=== PATIENT | male | born 1950 | race Caucasian/White ===

== ENCOUNTER 2017-04-29 09:22 | Emergency (ER) | payer MEDICARE, OTHER ==
[2017-04-29] MEDS ORDERED: ASPIRIN 81 MG TAB.CHEW PO ONE (09:38)
[2017-04-29] MEDS: NITROGLYCERIN 0.4 MG/TAB BTL SL PRN ×2 (09:45→09:50)
[2017-04-29 09:53] LABS: Hematocrit 42.2 % (42.0-52.0); Hemoglobin 13.6 gm/dL (13.5-18.0); Mean Corpuscular Hgb Conc 32.2 g/dl (32-36); Mean Platelet Volume 11.8 fl (6.0-9.5); Neutrophil # 7.1 K/mm3 (1.3-6.0); Neutrophil % 69.3 % (42-75.0); Platelet Count 256 K/mm3 (150-450); Red Blood Count 4.85 M/mm3 (4.7-6.0); White Blood Count 10.3 K/mm3 (4.0-10.5)
[2017-04-29] MEDS ORDERED: ASPIRIN 81 MG TAB.CHEW ONE (09:53)
[2017-04-29 10:03] LABS: Prothrombin Time (Patient) 11.3 Seconds (9.4-11.4)
[2017-04-29 10:06] LABS: INR 1.09 INR (0.90-1.10)
--- OUTSIDE RECORDS SUMMARY | 2017-04-29 10:32 | XMS REPORT | Continuity of Care Document ---
:1950 Author Organization [facility] ([facility]) Address [address] [place] [address] Phone [phone] Care Team Providers Name Role Phone Provider, No-Primary Care Primary Care Provider Unavailable Source Comments This disclosure is being made pursuant to the Care Everywhere program, applicable federal and state laws, and may not contain all informaitonavailable regarding this patient.[facility] ([facility]) Active Allergies and Adverse Reactions Allergen Noted Date Severity Reactions Comments Benzalkonium Chloride 11/22/2016 Blisters Current Medications Prescription Sig. Disp. Refills Start Date End Date Status STOOL SOFTENER 100 mg 11/05/2016 Active cap capsule VACUANT 283 mg enema 10/30/2016 Active acetylcysteine 10 % 10/30/2016 Active nebulizer solution albuterol-ipratropium 10/30/2016 Active 2.5-0.5 mg/3 mL inhalation solution aspirin 81 mg 10/30/2016 Active chewable tablet baclofen 20 mg tablet 10/30/2016 Active ULTRA FRESH 0.5 % 10/30/2016 Active drop ophthalmic drops chlorhexidine 0.12 % 10/30/2016 Active oral rinse diltiaZEM 120 mg ER 10/30/2016 Active capsule erythromycin 2 % 10/30/2016 Active topical solution LASIX 40 mg tablet 10/30/2016 Active ALLERGY RELIEF 10/30/2016 Active (FEXOFENADINE) 180 mg tablet losartan 50 mg tablet 10/30/2016 Active lidocaine 2 % jelly 10/30/2016 Active metoPROLol tartrate 10/30/2016 Active 50 mg tablet naproxen sodium 550 10/30/2016 Active mg tablet nortriptyline 10 mg 10/30/2016 Active capsule omeprazole 20 mg 10/30/2016 Active enteric coated capsule pseudoephedrine 60 mg 10/30/2016 Active tablet silver sulfADIAZINE 1 10/30/2016 Active % cream simethicone 80 mg 10/30/2016 Active chewable tablet CIALIS 20 mg tablet 10/30/2016 Active triamcinolone 0.1 % 10/30/2016 Active cream calcium 10/30/2016 Active citrate-vitamin D3 315 mg-250 unit per tablet HYDROcodone-acetamino 10/02/2016 Active phen 7.5-325 mg per tablet metFORMIN 500 mg XR 10/30/2016 Active tablet PREVIDENT 5000 PLUS 09/14/2016 Active 1.1 % dental cream trospium 20 mg tablet 09/14/2016 Active gabapentin 600 mg 08/30/2016 Active tablet NIZORAL 2 % shampoo 08/30/2016 Active HYDROcodone-acetamino Take 1 tablet by 20 tablet 0 12/20/2016 Active phen 5-325 mg per mouth every 4 hours tablet as needed for Pain. DO NOT EXCEED 3,000 MG ACETAMINOPHEN PER DAY FROM ALL SOURCES ibuprofen 800 mg Take 1 tablet (800 20 tablet 0 12/20/2016 Active tablet mg total) by mouth every 6 hours as needed for Pain. DO NOT EXCEED 3,200 MG IBUPROFEN PER DAY FROM ALL SOURCES chlorhexidine 0.12 % Rinse with 10 ML 473 mL 0 12/20/2016 Active oral rinse for 30 seconds twice daily for 10 days. Swish and spit out excess. Nothing by mouth for 30 minutes. Active Problems Problem Noted Date Tooth missing 11/22/2016 Social History Tobacco Use Types Packs/Day Years Used Date Former Smoker Pipe Smokeless Tobacco: Never Used Last Filed Vital Signs Vital Sign Reading Time Taken Blood Pressure 111/69 12/20/2016 12:27 PM [employer] Pulse 56 12/20/2016 12:27 PM [employer] Temperature 35.5 C (95.9 F) 12/20/2016 10:59 AM [employer] Respiratory Rate 20 10/04/2012 6:02 PM [employer] Height 1.753 m (5' 9.02") 12/20/2016 10:59 AM [employer] Weight 104.327 kg (230 lb) 12/20/2016 10:59 AM [employer] Body Mass Index 33.95 12/20/2016 10:59 AM [employer] Oxygen Saturation 100% 10/04/2012 6:02 PM [employer] Plan of Care Health Maintenance Due Date Last Done Comments HCV Screening 1950 Hepatitis B Vaccine (1 of 3 - Primary Series) 1950 Tdap Vaccine 1961 Lipid Disorder Screening 1968 Td Vaccine 1968 Colonoscopy 05/02/2000 Prostate Cancer Screening 2000 Zoster Vaccine 2010 Pneumococcal Vaccine (1 of 2 - PCV13) 2015 Influenza Vaccine: Seasonal (#1) 06/19/2016 Results from Last 3 Months Not on file
[2017-04-29 10:35] LABS: Albumin * 3.9 gm/dl (3.4-5.0); Anion Gap 13.5 mmol/L (6.8-13.8); Bilirubin, Total 0.4 mg/dL (0.0-1.1); Ca. Corrected For Albumin 9.3 mg/dL (8.4-10.2); Calcium * 9.5 mg/dL (7.9-10.9); Carbon Dioxide 31.6 mmol/L (24-32.6); Potassium 4.1 mmol/L (3.4-4.6); Total Protein 7.4 gm/dL (6.2-8.2)
[2017-04-29] MEDS ORDERED: CLOPIDOGREL BISULFATE 75 MG TABLET PO STA (10:36)
[2017-04-29] MEDS ORDERED: NITROGLYCERIN IN 5 % DEXTROSE 50 MG/250 ML INFUS..BTL IV PRN (10:37)
[2017-04-29] MEDS ORDERED: CLOPIDOGREL BISULFATE 75 MG TABLET ONE (10:41)
[2017-04-29] MEDS ORDERED: HEPARIN SODIUM,PORCINE 5,000 UNITS/ML VIAL IV ONE (11:11)
[2017-04-29] MEDS ORDERED: HEPARIN SODIUM,PORCINE 5,000 UNITS/ML VIAL ONE (11:13)
[2017-04-29] MEDS ORDERED: HEPARIN SODIUM,PORCINE/D5W 25,000 UNITS/500 ML BAG IV ONE (11:13)
--- NOTE | 2017-04-29 11:14 | ERNOTE ---
Chest Pain/Cardiac HPI Date of Service: 04/29/17 Chief Complaint: Chest Pain Time Seen by Provider: 04/29/17 09:32 Source: patient Exam Limitations: no limitations Immunizations: IMMUNIZATION HX Immunizations Up to Date Yes History of Influenza Vaccine Yes Hx Pneumococcal Vaccination Yes Allergies/Adverse Reactions: Allergies insect venom Adverse Reaction (Verified 04/29/17 09:43) Home Medications: HOME MEDICATIONS Atorvastatin Calcium [Lipitor] 20 mg PO 04/29/17 [Last Taken Unknown] Calcium Citrate 1 each PO DAILY 04/29/17 [Last Taken Unknown] Diltiazem 24Hr Cd 1 each PO DAILY 04/29/17 [Last Taken Unknown] Metoprolol Tartrate 1 each PO DAILY 04/29/17 [Last Taken Unknown] metFORMIN HCL [Metformin HCl ER] 2,000 mg PO DAILY 04/29/17 [Last Taken Unknown] Narrative: patient presents with chest pain. he has been having chentral CP in ray morning after breakfast for the last 4 days. This am since a little after 8am he has been having CP and pressure. he had recent sore throat seen at urgent care also. No acute SOB or pleuritic pain. Never had anything like this before. nothing makes it better or worse. He has not seen anyone else for this. Pain moderate right now. No fever. Timing: constant Severity/Quality: moderate Location: central Chest Pain Radiation: no radiation Activities at Onset: none Modifying Factors - Improves: Present: nothing Modifying Factors - Worsens: Present: nothing Nitro Today/Relief: no nitro taken today Aspirin Treatment Today: no aspirin today Associated Symptoms: Absent: headache, vomiting, abdominal pain Prior Chest Pain/Cardiac Workup: Denies: cardiac cath Prior Treatment: Reports: treated by physician Review of Systems - Review of Systems Constitutional: Absent: fever Respiratory: Absent: shortness of breath Cardiology: Absent: chest pain All Other Systems: All systems neg except as marked - Patient's Past Medical History Patient History - Medical: Other Patient History - Cardiac/Respiratory: Hypertension Patient History - Cancer: No Hx of Cancer Patient History - Surgical Procedures: Vasectomy, Other Patient History - Other: None - Social History Living Situations: spouse Abuse History: No History of abuse Psych History: No pertinent hx Smoking Status: Never smoker Have you smoked in the past 12 months: No Do you dip or chew tobacco: No Alcohol Use: occasionally Drug Use: none - Immunizations Immunizations Up to Date: Yes Hx Pneumococcal Vaccination: Yes History of Influenza Vaccine: Yes Physical Exam - Physical Exam General Appearance: Present: alert, no apparent distress Eye Exam: Normal inspection: bilateral Ears, Nose, Throat: Present: normal ENT inspection, other - mild posterior oropharyngeal erythema Neck: Present: normal inspection Respiratory: Present: no respiratory distress, normal breath sounds, no accessory muscle use Cardiovascular/Chest: Present: regular rate, rhythm, normal peripheral pulses Gastrointestinal/Abdominal: Present: normal bowel sounds, nontender, soft Extremity Exam: Present: other - no calf tendenress Neurological Exam: Present: other - chronic werakness from [place] Skin Exam: Absent: skin rash ED Progress - Results and Orders Patient's Lab Results:: I have reviewed the patient's lab results. - Vital Signs Patient's Vital Signs:: I have reviewed the patient's vital signs. Vital Signs: Vital Signs 04/29/17 04/29/17 04/29/17 09:25 09:42 09:51 Pulse Rate 80 76 Respiratory 14 16 12 Rate Blood Pressure 138/81 O2 Sat by Pulse 96 94 Oximetry 04/29/17 04/29/17 10:01 10:29 Pulse Rate 69 77 Respiratory 16 Rate Blood Pressure 138/85 147/89 O2 Sat by Pulse 95 94 Oximetry - EKG EKG read: Interp. by me EKG Comments: EKG # 1: NSR rate 73. There is 1mm ST elevation V3V4. EKG #2: Pain free. NSR rate 70. The changes in V3V4 seem to have resolved. - X-Ray X-Ray #1 X-Ray: chest Interpretation: Interp. by me X-ray Comments: Rotated. NAPP. No concurrent radiology reading available as is a weekend. - Progress/Reassessment Chief Complaint: Chest Pain Progress Note-Subjective: 04/29/17 11:11 patient had suspicious initial EKG but with 2 NTG all CP resolved. Repeat EKG showed resolution of the ST/T wave changes. Given ASA, NTG drip, Plavix. [facility]w [facility] request, [facility] given elevated trop. D/W Dr Cates at [facility], he accepts patient in transfer. He recommnds Heparin also. This was initiated. D/W Patient, pain free, agreeable. Departure - Departure Clinical Impression: ACS (acute coronary syndrome) Disposition: [facility] Condition: Stable
[2017-04-29] MEDS ORDERED: HEPARIN SODIUM,PORCINE/D5W 25,000 UNITS/500 ML BAG IV SCH (11:15)
[2017-04-29 11:39] VITALS: BP 126/72
== END 2017-04-29 11:30 | disposition short-term general hospital (02) ==
LOC: ER 09:22
DX: I24.9 Acute ischemic heart disease, unspecified (principal); I10 Essential (primary) hypertension